=== PATIENT | male | born 1970 | race Caucasian/White ===

== ENCOUNTER 2018-08-10 03:05 | Emergency (ER) | payer OTHER ==
--- NOTE | 2018-08-10 04:13 | EDPHY ---
H & P Stated Complaint: Seizure - hX of Seizures Time Seen by Provider: 08/10/18 03:34 HPI/ROS: Chief Complaint: Seizure HPI: 48-year-old HIV-positive male with a known seizure disorder presenting after having a seizure this morning. Patient's roommate heard a thud and went into his room to find him seizing. This lasted less than a minute. On EMS arrival the patient was postictal. Denies any complaints. He is compliant with his twice daily Keppra. No recent illness. No fevers or chills. He is taking his HIV medications. His current viral load is undetectable. He has been having seizures ever since he had meningitis a little over a year ago. He has been sleeping. No alcohol ingestion. No increased stress or anxiety. He has been in his usual state of health. Denies biting his tongue. Currently without complaint. ROS: 10 systems were reviewed and were negative except those elements noted in the HPI. PMH: HIV, seizure disorder Social History: No smoking, no alcohol, no recreational drug use Family History: non-contributory Physical Exam: Gen: Awake, Alert, No Distress HEENT: Nose: no rhinorrhea Eyes: PERRLA, EOMI Mouth: Moist mucosa Neck: Supple, no JVD Chest: nontender, lungs clear to auscultation Heart: S1, S2 normal, no murmur Abd: Soft, non-tender, no guarding Back: no CVA tenderness, no midline tenderness Ext: no edema, non-tender Skin: no rash Neuro: CN II-XII intact, Sensation grossly intact, Strength 5/5 in bilateral upper and lower extremities - Personal History Current Tetanus/Diphtheria Vaccine: Yes Current Tetanus Diphtheria and Acellular Pertussis (TDAP): Yes - Medical/Surgical History Hx Asthma: No Hx Chronic Respiratory Disease: No Hx Diabetes: No Hx Cardiac Disease: No Hx Renal Disease: No Hx Cirrhosis: No Hx Alcoholism: No Hx HIV/AIDS: Yes Hx Splenectomy or Spleen Trauma: No Other PMH: HIV, Menigitis, SZ - Social History Smoking Status: Never smoked Constitutional: Initial Vital Signs Temperature (C) 36.5 C 08/10/18 03:16 Heart Rate 73 08/10/18 03:16 Respiratory Rate 16 08/10/18 03:16 Blood Pressure 118/76 08/10/18 03:16 O2 Sat (%) 97 08/10/18 03:16 O2 Delivery Mode Room Air Allergies/Adverse Reactions: No Known Allergies Allergy (Unverified 08/10/18 03:14) Home Medications: Medication Instructions Recorded Keppra 08/10/18 Medical Decision Making ED Course/Re-evaluation: 48-year-old male on Keppra with a known seizure disorder had a breakthrough seizure. He is awake alert. He is without complaint. No obvious injuries. He has not had any seizures here. Will discharge with follow-up with his neurologist. He already has an appointment with Next Tuesday. Departure - Departure Disposition: Home, Routine, Self-Care Clinical Impression: Seizure disorder Condition: Good Instructions: Epilepsy (ED) Additional Instructions: Follow up with your doctor on Tuesday as scheduled. Return to the emergency department for further seizures, headache, fevers or chills, uncontrolled nausea vomiting, or any other concerns. Referrals: NONE *PRIMARY CARE P,. [Primary Care Provider] - As per Instructions
[2018-08-10 04:48] VITALS: BP 134/70
== END 2018-08-10 04:45 | disposition home or self-care (01) ==
DX: G40.909 Epilepsy, unspecified, not intractable, without status epilepticus (principal); Z21 Asymptomatic human immunodeficiency virus [HIV] infection status